=== PATIENT | female | born 1955 | race Two or more races ===

== ENCOUNTER → 2019-01-05 | Outpatient (CLI) | payer OTHER ==
[2019-01-05 09:19] LABS: Cholesterol 197 mg/dL (< 200); HDL Cholesterol 48 mg/dL (40-59); LDL Cholesterol 140 mg/dL (< 100); Triglycerides 110 mg/dL (< 150)
== END | disposition home or self-care (01) ==
LOC: LAB 08:02
PROVIDERS: ATTEND Obstetrics & Gynecology
DX: E78.00 Pure hypercholesterolemia, unspecified (principal)
CPT/HCPCS: 36415; 80061